=== PATIENT | female | born 1990 | race Two or more races ===

== ENCOUNTER 2019-10-07 13:03 | Emergency (ER) | payer OTHER ==
[2019-10-07] MEDS ORDERED: ALPRAZolam 0.5 MG TAB PO ONE (14:00)
[2019-10-07] MEDS ORDERED: PARoxetine 20 MG TAB PO ONE (14:00)
[2019-10-07 14:11] LABS: Basophils # (auto) 0 uL; Basophils % (auto) 0.4 % (0.0-2.0); Eosinophils # (auto) 0 uL; Eosinophils % (auto) 0.1 % (0.0-7.0); Hematocrit 41.1 % (36.0-46.0); Hemoglobin 14.4 g/dL (12.2-16.2); Lymphocytes % (auto) 12.5 % (10.0-50.0); Mean Corpuscular Hemoglobin 33.5 pg (28.0-32.0); Mean Corpuscular Hgb Conc. 34.9 g/dL (32.0-36.0); Mean Corpuscular Volume 95.9 fL (80.0-100.0); Monocytes # (auto) 0.3 uL; Monocytes % (auto) 4.1 % (0.0-12.0); Neutrophils # (auto) 6.8 uL; Neutrophils % (auto) 82.9 % (37.0-80.0); Platelet Count (auto) 211 10^3/uL (140-450); Red Blood Cells 4.29 10^6/uL (4.0-5.20); Red Cell Distribution Width 12.2 % (11.8-14.3); White Blood Cell 8.2 10^3/uL (4.4-10.8)
[2019-10-07 14:18] LABS: Urine Bacteria FEW /hpf (None Seen); Urine Blood Negative /uL (Negative); Urine Mucus FEW (None Seen); Urine Specific Gravity 1.011 (1.001-1.035); Urine WBC 34 /hpf (0 - 5)
[2019-10-07 14:32] LABS: Albumin 4.2 g/dL (3.4-5.0); Potassium 3.6 mmol/L (3.5-5.1); Salicylate < 1.7 mg/dL (2.8-20.0)
[2019-10-07 14:35] LABS: Bilirubin, Total 0.6 mg/dL (0.2-1.0); Total Protein 8.1 g/dL (6.4-8.2)
[2019-10-07 14:54] LABS: Alcohol, Urine < 3.0 mg/dL (0-5); Amphetamine Screen, Urine NEGATIVE (NEGATIVE); Barbiturate Scree,Urine NEGATIVE (NEGATIVE); Benzodiazephine Screen, Urine POSITIVE (NEGATIVE); Cannabinoid Screen, Urine NEGATIVE (NEGATIVE); Cocaine Screen, Urine NEGATIVE (NEGATIVE)
[2019-10-07 15:00] LABS: Acetaminophen < 2.0 ug/mL (10-30)
[2019-10-07 15:02] LABS: Opiate Scree,Urine NEGATIVE (NEGATIVE); Phencyclidine Screen, Urine NEGATIVE (NEGATIVE)
[2019-10-07] MEDS ORDERED: CIPROFLOXACIN HCL 500 MG TAB PO ONE (16:15)
[2019-10-07 17:28] VITALS: BP 107/60
== END 2019-10-07 17:33 | disposition home or self-care (01) ==
LOC: ER 13:09
DX: F41.1 Generalized anxiety disorder (principal); N39.0 Urinary tract infection, site not specified; G44.209 Tension-type headache, unspecified, not intractable
CPT/HCPCS: 36415; 80053; 80307; 80329; 81001; 81025; 85025